=== PATIENT | male | born 2000 | race Two or more races ===

== ENCOUNTER 2023-10-09 19:05 | Emergency (ER) | payer OTHER ==
[2023-10-09 20:23] LABS: SARS-CoV-2 NAA Rapid Test Not Detected (NotDetected)
== END 2023-10-09 19:42 | disposition home or self-care (01) ==
LOC: BURERS 19:05
DX: J10.1 Influenza due to other identified influenza virus with other respiratory manifestations (principal); R50.9 Fever, unspecified
CPT/HCPCS: 99283